=== PATIENT | female | born 2000 | race Two or more races ===

== ENCOUNTER 2024-02-26 10:58 | Emergency (ER) | payer OTHER ==
[~2024-02-26] VITALS: Ht 170.2 cm; Wt 75.4 kg
[2024-02-26] MEDS ORDERED: LUTERA-28 (11:23)
[2024-02-26 11:59] LABS: HEMATOCRIT 44.2 % (36.0-47.0); HEMOGLOBIN 14.6 g/dl (12.0-15.5); MEAN CORPUSCULAR HEMOGLOBIN 28.8 pg (27.0-33.0); MEAN CORPUSCULAR VOLUME 87.2 fl (80.0-96.0); PLATELET COUNT, AUTOMATED 170 10^3/uL (150-450); RED BLOOD COUNT 5.07 10^6/uL (4.00-5.40)
[2024-02-26 12:23] LABS: HCG, SERUM QUALITATIVE NEGATIVE (NEGATIVE)
[2024-02-26 12:25] LABS: BLOOD UREA NITROGEN 11 MG/DL (9-23); CALCIUM LEVEL 9.1 MG/DL (8.5-10.1); CARBON DIOXIDE LEVEL 28 MMOL/L (20-31); CHLORIDE LEVEL 103 MMOL/L (98-107); CREATININE FOR GFR 0.71 MG/DL (0.55-1.30); GLOMERULAR FILTRATION RATE > 60.0 (>60); GLUCOSE, FASTING 103 MG/DL (60-100); SODIUM LEVEL 137 MMOL/L (136-145)
[2024-02-26 12:28] LABS: LYMPHOCYTES 26 % (16-44); MONOCYTES 11 % (0-5); NEUTROPHILS 63 % (28-66); PLATELET ESTIMATE NORMAL (NORMAL)
[2024-02-26 13:24] LABS: ERYTHROCYTE SEDIMENTATION RATE 18 mm/hr (0-20)
[2024-02-26] MEDS: KETOROLAC 30 MG/ML 1ML VIAL IV ONE (13:27)
[2024-02-26 13:45] LABS: MONO SCRN POSITIVE (NEGATIVE)
[2024-02-26 14:57] VITALS: BP 100/55; TEMP 98.6; O2SAT 95
== END 2024-02-26 15:12 | disposition home or self-care (01) ==
LOC: M ED 10:58
DX: R51.9 Headache, unspecified (principal); B27.90 Infectious mononucleosis, unspecified without complication; Z79.899 Other long term (current) drug therapy
CPT/HCPCS: 80048; 84703; 85025; 85652; 86308; 87486; 87581; 87633; 87798; 87880; 96374; 99284; J1885

== ENCOUNTER → 2024-04-16 | Outpatient (CLI) | payer OTHER ==
[~2024-04-16] MED LIST: LUTERA-28
== END ==
LOC: M RAD 13:25
PROVIDERS: ATTEND Otolaryngology
DX: D44.0 Neoplasm of uncertain behavior of thyroid gland (principal)